=== PATIENT | male | born 1955 | race Caucasian/White ===

== ENCOUNTER 2017-08-28 20:36 | Emergency (ER) | payer BC ==
[~2017-08-28] VITALS: Ht 165.1 cm; Wt 83.9 kg
[2017-08-28 20:40] VITALS: BP 134/76
--- NOTE | 2017-08-28 21:30 | NUR ---
PATIENT AMBULATED TO ER CHAIR E.
--- NOTE | 2017-08-28 21:35 | NUR ---
PATIENT IS A 61 Y/O MALE WHO PRESENTS TO THE ED C/O HEADACHE. PT STATES THAT HE WOKE UP WITH A MORNING HEADACHE AND DROOLING SALIVA. PT REPORTS 2/10 ACHING LEFT HEADACHE PAIN THAT DOES NOT RADIATE. PT DENIES CP, SOB, N/V/D. PT AAOX4, RR EVEN/UNLABORED. PT REPOSITIONED FOR COMFORT, PT SITTING IN CHAIR. ER MD DR. NUNN NOTIFIED. WILL CONTINUE TO MONITOR.
[2017-08-28 22:14] VITALS: BP 128/82
== END 2017-08-28 22:15 | disposition home or self-care (01) ==
LOC: MED 20:36
DX: R51 Headache (principal); I10 Essential (primary) hypertension; F32.9 Major depressive disorder, single episode, unspecified
CPT/HCPCS: 70450; 99284